=== PATIENT | female | born 1955 | race Caucasian/White ===

== ENCOUNTER 2020-05-20 12:47 | Outpatient (CLI) | payer BC, SELFPAY | END 2020-05-20 12:48 | disposition home or self-care (01) | PROVIDERS: PCP Family Medicine; Visit Provider Otolaryngology | DX: H93.19 Tinnitus, unspecified ear (principal); H90.3 Sensorineural hearing loss, bilateral | CPT/HCPCS: 92557; 92567 ==

== ENCOUNTER 2020-05-25 09:20 | Outpatient (RCR) | payer BC, SELFPAY ==
--- NOTE | 2020-05-25 10:46 | PTOPEVAL ---
PHYSICAL THERAPY EVALUATION AND PLAN OF CARE 05-25-2020 Thank you for referring Zabrina Lopez to [facility], for the diagnosis of BPPV. She is scheduled to be seen for therapy? 0-2x/week for 4 weeks. Micaela is to call for any questions or to make an appointment if she has another episode of vertigo. Please review, sign, date and return this plan of care DAMIAN. I agree with and certify that the following plan of care is medically necessary. Referring Physician Date Attending Provider: Adithya Beavers MD *PT Outpatient Evaluation Document 05/25/20 09:45 DAMIAN (Rec: 05/25/20 10:46 DAMIAN [id number]) Outpatient Past Medical History Past Medical History Source of Past Medical History Patient Neurological History Hx Neurological Disorders No Significant History Cardiovascular History Hx Cardiac Disorders No Significant History Respiratory History Hx Other Respiratory Disorders Yes: seaonal allergies; Gastrointestinal History Hx Gastrointestinal Disorders No Significant History Genitourinary History Hx Genitourinary Disorders No Significant History Musculoskeletal History Hx Musculoskeletal Disorders No Significant History Hematological History Hx Hematological Disorders No Significant History Endocrine History Hx Diabetes Yes: meds Hx Thyroidectomy Yes: meds HEENT History Hx Cataracts Yes: L eye- still recovering Hx Retinal Detachment Yes: R eye, about 1 yr ago; Hx Sinus Problems Yes: seasonal allergies Hx Other HEENT Disorders Yes: 35 yr ago resection of turbanate/nasal passage Reproductive History Hx Hysterectomy Yes Evaluation Information Problem Diagnosis vestibular rehab/ BPPV Onset 10-18-19 Subjective Information have had 2 bouts of dizziness: Query Text:As Reported By Patient/ October and March this year Family and about 35 and 10 yr ago; Previous Treatments Previous Treatments For This Problem no treatment for vertigo Prior Level of Function Medications Home Meds (Include: OTC, RX, Vitamins, metformin, levothyroxine, Herbals, Dose, Route,and Frequency) zyrtec-daily for allergies; Query Text:Home Med Entries Will No multivitamin Longer Recall From Past Visits. Home Meds Must Be Re-entered With Each Visit. Home Setting Home Type House Living Situation With Spouse Mobility Assistive Devices (Used Last 3 None Months) Comments Additional Prior Level of Function indep with all home and self Comments care tasks, except when have vertigo Pain Assessment Timing of Pain Assessment Timing of Pain Assessment Assessment Self Report Self Report Pain Level 0 Pain Score Pain Score
--- NOTE | 2020-07-08 11:10 | PCPTNOTE ---
PHYSICAL THERAPY DISCHARGE 07-08-2020 Attending Provider: Adithya Beavers MD Patient:Zabrina Lopez Date of :1955 Mrs. Lopez has not returned for any further treatments since the initial evaluation on 05/25/2020, for the diagnosis of vertigo. Therefore she will be discharged at this time. [facility]. Please review, sign, date and return this discharge summary DAMIAN. I have been updated about the patient's current status and I agree with discharge from the above service at this time. Referring Physician Date
== END 2020-07-08 14:28 | disposition home or self-care (01) ==
LOC: ANHPT 09:20
PROVIDERS: PCP Family Medicine; Visit Provider Otolaryngology
DX: H81.10 Benign paroxysmal vertigo, unspecified ear (principal)
CPT/HCPCS: 97161

== ENCOUNTER → 2020-07-27 11:22 | Outpatient (CLI) | payer BC, SELFPAY ==
--- NOTE | ~2020-07-27 | MM_ITS ---
EXAMINATION: MM screening hilton BI w calli HISTORY: Screening mammogram TECHNIQUE: Craniocaudal and mediolateral oblique 3-D tomosynthesis images were obtained and synthetic 2-D images were generated. CAD analysis was submitted and interpreted. COMPARISON: 04/15/2019, 10/17/2016, 08/24/2014 bilateral digital screening mammogram examinations BREAST PARENCHYMAL COMPOSITION: The breasts are heterogeneously dense, which may obscure small masses . FINDINGS: Occasional bilateral benign calcifications. A There is no evidence of suspicious mass, calc ification, or architectural distortion to suggest malignancy in either breast. There has been no susp icious interval change. IMPRESSION: 1. No mammographic evidence of malignancy. 2. Recommend routine screening mammography in one year. BI-RADS Category 2: Benign finding(s). Reviewed, dictated and finalized at location A. NESS TEST ANALYST
== END ==
PROVIDERS: PCP Family Medicine; Visit Provider Family Medicine
DX: Z12.31 Encounter for screening mammogram for malignant neoplasm of breast (principal)
CPT/HCPCS: 77063; 77067

== ENCOUNTER → 2022-04-11 10:17 | Outpatient (CLI) | payer MEDICARE, SELFPAY ==
--- NOTE | ~2022-04-11 | MM_ITS ---
EXAMINATION: MM screening hilton BI w calli HISTORY: Screening mammogram TECHNIQUE: Craniocaudal and mediolateral oblique 3-D tomosynthesis images were obtained and synthetic 2-D images were generated. CAD analysis was submitted and interpreted. COMPARISON: 07/27/2020, 04/15/2019, 10/17/2016 bilateral screening mammogram examinations BREAST PARENCHYMAL COMPOSITION: The breasts are heterogeneously dense, which may obscure small masses . FINDINGS: Right breast: There is asymmetry in the inner aspect of the right breast on craniocaudal view. Diagno stic right mammogram is recommended, with ultrasound if required Left breast: There is no evidence of suspicious mass, calcification, or architectural distortion to s uggest malignancy in either breast. There has been no suspicious interval change. IMPRESSION: 1. Medial right breast asymmetry on craniocaudal view 2. Diagnostic right mammogram is recommended, with ultrasound if required BI-RADS Category 0: Incomplete: Needs additional imaging evaluation. Reviewed, dictated and finalized at location A.
--- NOTE | ~2022-04-11 | DEXA_ITS ---
Bone Density Report Name: TIM RICKETTS Age: 67 Sex: Female Ethnicity: White Date of : 1955 Indication: postmenopausal; screening for osteoporosis; parental hip fracture; hysterectomy; Referring Provider: Jaqui Bary Study: Bone densitometry was performed. Exam Date: April 11, 2022 Accession number: [id number] Bone Density: Region BMD T-score Z-score Classification AP Spine (L1-L4) 1.181 1.2 3.1 Normal Femoral Neck (Left) 0.845 0.0 1.5 Normal Total Hip (Left) 1.021 0.6 1.9 Normal Femoral Neck (Right) 0.873 0.2 1.8 Normal Total Hip (Right) 0.991 0.4 1.7 Normal Total Hip Mean 1.006 0.5 1.8 Normal World Health Organization criteria for BMD impression classify patients as: Normal (T-score at or above -1.0), Osteopenia (T-score between -1.0 and -2.5), or Osteoporosis (T-score at or below -2.5). 10-year Fracture Risk: FRAX not reported because: All T-scores for Spine Total, Hip Total, Femoral Neck at or above -1.0 Previous Exams: Region Exam Age BMD T-score BMD Change BMD Change Date g/cm2 vs Baseline vs Previous AP Spine(L1-L4) 04/11/2022 67 1.181 1.2 0.084 0.027 04/15/2019 64 1.155 1.0 0.058* 0.049* 12/03/2007 52 1.106 0.5 0.009 0.009 02/08/2005 49 1.097 0.5 Total Hip(Left) 04/11/2022 67 1.021 0.6 0.064* 0.020 04/15/2019 64 1.001 0.5 0.044* 0.014 12/03/2007 52 0.987 0.4 0.031* 0.031* 02/08/2005 49 0.956 0.1 Total Hip(Right) 04/11/2022 67 0.991 0.4 0.061 0.019 04/15/2019 64 0.972 0.2 0.042* 0.024 12/03/2007 52 0.948 0.0 0.017 0.017 02/08/2005 49 0.930 -0.1 *Denotes significance at 95% confidence level, LSC for AP Spine = 0.022 g/cm2, LSC for Total Hip = 0.027 g/cm2 Clinical Information Provided by Patient: Parent has had a hip fracture Has used the following medications: Vitamin D, Calcium, Levothyroxine Has the following medical conditions: Hysterectomy Patient maximum height was 68.0 Menopause Age: 46 No regular weight bearing exercise Onset of menses at age 14 Number of children 0 Impression: The patient has normal bone mass. The patient has risk factors, including: parental hip fracture. No significant bone loss was observed. Discussion: BONE DENSITY IS ABOVE THE MINIMUM
== END ==
PROVIDERS: PCP Family Medicine; Visit Provider Physician Assistant
DX: Z12.31 Encounter for screening mammogram for malignant neoplasm of breast (principal); Z78.0 Asymptomatic menopausal state; R92.8 Other abnormal and inconclusive findings on diagnostic imaging of breast
CPT/HCPCS: 77063; 77067; 77080

== ENCOUNTER → 2022-04-25 08:37 | Outpatient (CLI) | payer MEDICARE, SELFPAY ==
--- NOTE | ~2022-04-25 | MM_ITS ---
EXAMINATION: MM diagnostic hilton RT w calli HISTORY: Right breast asymmetry on screening mammogram TECHNIQUE: Additional 3-D tomosynthesis images of the right breast were performed and synthetic 2-D i mages were generated. CAD analysis was submitted and interpreted. COMPARISON: 04/11/2022, 07/27/2020, 04/15/2019 FINDINGS: There is a return to baseline fibroglandular appearance with spot compression of the right breast in the area questioned on screening mammogram. IMPRESSION: 1. No mammographic evidence of malignancy. 2. Recommend routine screening mammography in one year. BI-RADS Category 1: Negative Reviewed, dictated and finalized at location A.
== END ==
PROVIDERS: PCP Family Medicine; Visit Provider Physician Assistant
DX: R92.8 Other abnormal and inconclusive findings on diagnostic imaging of breast (principal)
CPT/HCPCS: 77061; 77065; G0279

== ENCOUNTER → 2022-08-28 10:00 | Outpatient (CLI) | payer MEDICARE, SELFPAY ==
--- NOTE | ~2022-08-28 | XR_ITS ---
Clinical Indication: Cough PA and lateral views of the chest: Comparison: None Findings: The lungs are clear, without evidence of focal consolidation or pleural effusion. Cardiome diastinal silhouette is within normal limits. Bones and soft tissues are unremarkable. Impression: Normal chest. Reviewed, dictated and finalized at location . H HAULER Impression: Normal chest.
== END ==
PROVIDERS: PCP Family Medicine; Visit Provider Family Medicine
DX: R05.9 Cough, unspecified (principal)
CPT/HCPCS: 71046

== ENCOUNTER → 2023-08-28 10:34 | Outpatient (CLI) | payer MEDICARE, SELFPAY ==
--- NOTE | ~2023-08-28 | MM_ITS ---
EXAMINATION: MM screening hilton BI w calli HISTORY: Screening mammogram, family history of breast cancer in her mother. TECHNIQUE: Craniocaudal and mediolateral oblique 3-D tomosynthesis images were obtained and synthetic 2-D images were generated. CAD analysis was submitted and interpreted. COMPARISON: 04/25/2022, 04/11/2022, 07/27/2020, 04/15/2019 BREAST PARENCHYMAL COMPOSITION: The breasts are heterogeneously dense, which may obscure small masses . FINDINGS: No suspicious mass, calcification, or architectural distortion are identified in either yong ast to suggest malignancy. There has been no suspicious interval change. IMPRESSION: 1. No mammographic evidence of malignancy. 2. Recommend routine screening mammography in one year. BI-RADS Category 1: Negative Reviewed, dictated and finalized at location A. ING MACHINE FEEDER
== END ==
PROVIDERS: PCP Family Medicine; Visit Provider Family Medicine
DX: Z12.31 Encounter for screening mammogram for malignant neoplasm of breast (principal)
CPT/HCPCS: 77063; 77067

== ENCOUNTER 2024-09-02 10:27 | Outpatient (CLI) | payer MEDICARE, SELFPAY ==
--- NOTE | ~2024-09-02 | MM_ITS ---
EXAMINATION: MM screening hilton BI w calli HISTORY: Screening TECHNIQUE: Craniocaudal and mediolateral oblique 3-D tomosynthesis images were obtained and synthetic 2-D images were generated. CAD analysis was submitted and interpreted. COMPARISON: Comparison to multiple prior studies sequentially, with oldest reviewed study dated 02/2022. BREAST PARENCHYMAL COMPOSITION: Not dense: There are scattered areas of fibroglandular density. FINDINGS: There is no evidence of suspicious mass, calcification, or architectural distortion to sugg est malignancy in either breast. There has been no suspicious interval change. IMPRESSION: 1. No mammographic evidence of malignancy. 2. Recommend routine screening mammography in one year. BI-RADS Category 1: Negative Reviewed, dictated and finalized at location A. RVISOR FINISH END
== END 2024-09-02 10:28 | disposition home or self-care (01) ==
LOC: MICIMG 10:28
PROVIDERS: PCP Family Medicine; Visit Provider Nurse Practitioner
DX: Z12.31 Encounter for screening mammogram for malignant neoplasm of breast (principal)
CPT/HCPCS: 77063; 77067

== ENCOUNTER 2025-08-02 09:53 | Outpatient (CLI) | payer MEDICARE, SELFPAY ==
--- OUTSIDE RECORDS SUMMARY | 2025-07-30 08:33 | XMS_ITS | Patient Health Record ---
Author Organization [facility] Address [address] [place], [place] [id number] Care Team Providers Care Hearing Impaired Teacher Name Role Phone CAESAR Roth Unavailable Celestine Yung Unavailable Unavailable Reason For Referral No Information Medications Medication SIG (Take, Route, Frequency, Duration) Notes Start Date End Date Status cetirizine hydrochloride 10 MG Oral Tablet [Zyrtec] ORAL cetirizine hydrochloride 10 MG Oral Tablet [Zyrtec]Original Medicationcetirizine hydrochloride 10 MG Oral Tablet [Zyrtec] *Reorder from Cono-C for eRx and Interaction Alerts* 09/12/2016 Active Social History Social History Additional Details Category Social Info Options Details Migrated Social History Migrated Social History History of tobacco use : , Alcohol intake : , Smoking Status : Never smoked Plan Of Treatment No Information Insurance Providers Payer Name Payer Address Payer Phone Subscriber Number Group Number Insured Name Patient Relationship to Insured Coverage Start Date Coverage End Date [facility] ([facility]) ATTN CLAIMS [address] [place] [address] [id number] MOHSEN RICKETTS Spouse - patient is the spouse of the insured
--- OUTSIDE RECORDS SUMMARY | 2025-08-02 10:18 | XMS_ITS | Patient Health Record ---
Author Organization [facility] Address [address] [place], [place] [id number] Care Team Providers Care Pcat Instructor Name Role Phone CAESAR Roth Unavailable [phone] Celestine Yung Unavailable Unavailable Reason For Referral No Information Medications Medication SIG (Take, Route, Frequency, Duration) Notes Start Date End Date Status cetirizine hydrochloride 10 MG Oral Tablet [Zyrtec] ORAL cetirizine hydrochloride 10 MG Oral Tablet [Zyrtec]Original Medicationcetirizine hydrochloride 10 MG Oral Tablet [Zyrtec] *Reorder from [employer] for eRx and Interaction Alerts* 09/12/2016 Active [...] Insured Coverage Start Date Coverage End Date [facility] ([facility]) ATTN CLAIMS [address] [place] [address] [id number] MOHSEN RICKETTS Spouse - patient is the spouse of the insured
--- NOTE | 2025-08-23 18:50 | WPDSLEEPSTUD ---
Sleep Study Date of Study: 08/02/25 Ordering Provider: Abbey Kirkland DO Interpreting Physician: Mally Brewer DO Sleep Study Type: Polysomnogram Height: 1.73 m Weight: 90.718 kg Body Mass Index: 30.4 Neck Circumference (inches): 14 [place]: 11 Reason for Sleep Study Daytime hypersomnia [facility] Past Medical History Medical History Hypertension Allergies Class 1 obesity due to excess calories with serious comorbidity and body mass index (BMI) of 32.0 to 32.9 in adult (~11/2016) Vitamin D deficiency, unspecified (~11/2016) Menopause (~2000) Hypothyroidism (acquired) (~11/2016) Prediabetes (~11/2016) H/O infertility (~1984) Personal history of endometriosis (~1975) Surgical History Surgical History H/O detached retina repair (~09/2018) History of hysterectomy for benign disease (~2000) laparoscopies (-1999) for infertility adopted 2 natural chiildren: son, daughter: 1985. 1990 Family History Family History Mother , @ 85 y/o Hypertension Family history of malignant neoplasm of breast in first degree relative Diabetes mellitus COPD (chronic obstructive pulmonary disease) with emphysema Heart disease Thyroid disorder Father , @ 83 y/o Family history of chronic obstructive pulmonary disease Family history of dementia Cerebrovascular accident from CVA Hypertension Sibling Detached retina, right brother: @ 52 y/o (2005) Thyroid disorder Social History Social History Smoking status: Never smoker Second hand tobacco smoke exposure: No Alcohol intake: current Drinks per week: 1 Substance use: never Substance use type: does not use Lack of Transportation: No Lack of Food: Never True Current Housing: I Have Housing Concerned About Future Housing: No Difficulty Paying Gas/Electric Bills: No Difficulty Paying for Meds: No Currently Unemployed: No Education: Trade/Vocational Certificate Difficulty w/ Childcare or Family Care: No Living arrangements: with family Occupation/Education: occupation Additional occupation/education comments: [employer] Gender identity (if verbalized by the patient): Female Spiritual care concerns: Yes (Roman Catholic) Agree to blood products: Yes Medications Home Medications ?Medication ?Instructions ?Recorded ?Confirmed ?Type cetirizine 10 mg tablet (Zyrtec) 10 mg PO DAILY PRN 08/12/20 06/04/25 History albuterol sulfate 90 mcg/actuation 2 inh inhalation Q4H PRN shortness 10/16/22 06/04/25 Rx aerosol inhaler of breath or wheezing #8.5 grams Lactobacillus combo no.23 14 cell PO 12/04/24 06/04/25 History billion cell capsule (Tomas Probiotic) coenzyme Q10 400 mg capsule 400 mg PO DAILY 12/04/24 06/04/25 History pravastatin 10 mg tablet See Rx Instructions .Route 03/10/25 06/04/25 Rx .COMPLEX #90 tabs lisinopril 20 mg tablet See Rx Instructions .Route 04/06/25 06/04/25 Rx .COMPLEX #90 tabs levothyroxine 75 mcg tablet See Rx Instructions .Route 06/03/25 06/04/25 Rx .COMPLEX #90 tabs metformin 500 mg tablet See Rx Instructions .Route 06/03/25 06/04/25 Rx .COMPLEX #180 tabs hydrochlorothiazide 12.5 mg tablet See Rx Instructions .Route 06/15/25 Rx .COMPLEX #90 tabs tirzepatide 5 mg/0.5 mL 5 mg (0.5 mL) subcut WEEKLY #2 mL 07/01/25 Rx subcutaneous pen injector (Mounjaro) Sleep Procedure A full night polysomnogram using the Shopography multi-channel system recorded the standard physiologic parameters including EEG, EOG, submentalis EMG, anterior tibialis EMG, EKG, body position, nasal and oral airflow using nasal pressure sensor and thermistor.? Respiratory parameters of chest and abdominal movements were recorded with Respiratory Inductance Plethysmography belts. Oxygen saturation was recorded by pulse oximetry. Video monitoring was also performed. Sleep stages, periodic limb movements, and EEG arousals were scored in 30 second epochs according to the criteria of the AASM Scoring Manual. The Apnea-Hypopnea Index was calculated using CMS guidelines for definition of hypopnea with 4% O2 desaturations while scoring respiratory events. Sleep Architecture The total recording time was 434.1 minutes.? The total sleep time was 405.5 minutes. Sleep latency was 7.4 minutes. REM latency was 95.5 minutes. Sleep efficiency was 93.4%. The patient had 22 awakenings for an awakening index of 3.3. Wake after sleep onset time was 21.0 minutes. The patient spent 36.0 minutes, 8.9% of total sleep time in Stage N1. The patient spent 241.5 minutes, 59.6% in Stage N2. The patient spent 61.0 minutes, 15.0% in Stage N3. The patient spent 67.0 minutes, 16.5% in Stage REM sleep. Respiratory Analysis The patient had 14 hypopneas, 7 obstructive apneas, - mixed apneas, and - central apneas for an overall Apnea Hypopnea Index of 3.1. The REM Apnea Hypopnea Index was 14.3. The NREM Apnea Hypopnea Index was 1.2. The patient had a Central Apnea Hypopnea Index of -. There were - Respiratory Effort Related Arousals resulting in a RERA index of - events per hour. The Respiratory Disturbance Index is 7.7 events per hour. There was no evidence of Alex-Moss Respirations. Arousals There were 145 total arousals for an arousal index of 21.5. There were 117 spontaneous arousals for an index of 17.3. There were 7 arousals due to respiratory events for an index of 1.0. There were 4 arousals due to periodic limb movements for an index of 0.6.? There were 17 arousals due to isolated limb movements for an index of 2.5. Periodic Limb Movements The patient had 30 isolated limb movements with an index of 4.4. The patient had 12 periodic limb movements with an index of 1.8. Patient had a total of 42 limb movements with a total limb movement index of 6.2. Oximetry Data The patient had an average oxygen saturation of 92.3% in sleep with a minimum oxygen saturation of 81.0% and a maximum oxygen saturation of 97.0%. The patient had 26 oxygen desaturations that were 4% or greater resulting in an Oxygen Desaturation Index of 3.8.? The patient spent [min] minutes, [%] of total sleep time with an oxygen saturation below 88%. Cardiac Profile The EKG showed normal sinus rhythm.? The patient had an average pulse rate of 62.3 bpm with a minimum pulse of rate of 50.0 bpm and a maximum pulse rate of 89.0 bpm.? EEG Profile No signs of seizure activity seen. Assessment and Plan Data The data obtained during this sleep study is adequate for interpretation. Certification This sleep study has been reviewed by a board certified sleep medicine physician.
[2025-08-23 18:51] VITALS: BMI 30.4
== END 2025-08-03 07:05 | disposition home or self-care (01) ==
PROVIDERS: PCP Family Medicine; Visit Provider Family Medicine
DX: G47.10 Hypersomnia, unspecified (principal)
CPT/HCPCS: 95810